=== PATIENT | male | born 1940 | race Caucasian/White ===

== ENCOUNTER 2017-08-15 17:18 | Emergency (ER) | payer OTHER ==
[~2017-08-15] VITALS: Ht 177.8 cm; Wt 83.9 kg
[~2017-08-15 17:18] MED LIST: ASPI81EC PO; CARV25 PO; DIGO.25 PO; FURO40 PO; LEVSOD100 PO; LISI20 PO; OMEP20ER PO; POTCHL10ER PO; SIMV40 PO
[2017-08-15] MEDS ORDERED: Norco 5-325 Ta1 EACH PO (18:13)
[2017-08-15] MEDS ORDERED: IBUP800 PO (18:13)
[2017-08-15] MEDS ORDERED: CEPH500 PO (18:13)
[2017-08-15] MEDS ORDERED: ATOR40TA PO (18:41)
== END 2017-08-15 20:06 | disposition home or self-care (01) ==
LOC: ER 17:18
DX: S62.333A Displaced fracture of neck of third metacarpal bone, left hand, initial encounter for closed fracture (principal); S62.325A Displaced fracture of shaft of fourth metacarpal bone, left hand, initial encounter for closed fracture; S66.303A Unspecified injury of extensor muscle, fascia and tendon of left middle finger at wrist and hand level, initial encounter; S61.412A Laceration without foreign body of left hand, initial encounter; W29.8XXA Contact with other powered hand tools and household machinery, initial encounter; Z79.82 Long term (current) use of aspirin; Z79.899 Other long term (current) drug therapy
CPT/HCPCS: J0690

== ENCOUNTER → 2023-02-12 | Outpatient (CLI) | payer OTHER ==
[~2023-02-12] MED LIST changes: +ATOR40TA PO; +CEPH500 PO; +IBUP800 PO; +Norco 5-325 Ta1 EACH PO
[2023-02-12 19:43] LABS: Albumin, Blood 3.2 g/dL (3.4-5.0); Albumin/Globulin Ratio 1.3 (0.8-1.8); Bilirubin, Total 0.9 mg/dL (0.1-1.0); Calcium, Blood 8.6 mg/dL (8.5-10.1); Creatinine, Blood 1.15 mg/dL (0.60-1.20); Globulin, Blood 2.5 g/dL (2.2-4.0); Potassium, Blood 4.4 mmol/L (3.5-5.5); Total Protein, Blood 5.7 g/dL (6.4-8.2)
== END | disposition home or self-care (01) ==
LOC: LAB 17:50 → LAB SHORT 17:50
PROVIDERS: Family Medicine
DX: I50.9 Heart failure, unspecified (principal)
CPT/HCPCS: 80053; 83880

== ENCOUNTER 2023-05-15 12:35 | Emergency (ER) | payer OTHER ==
[~2023-05-15] VITALS: Ht 177.8 cm; Wt 72.6 kg
[2023-05-15 14:31] LABS: BASOPHILS ABSOLUTE AUTO 0.07 K/mm3 (0.00-0.23); BASOPHILS PERCENT AUTO 1 % (0-2); EOSINOPHILS ABSOLUTE AUTO 0.04 K/mm3 (0.00-0.68); EOSINOPHILS PERCENT AUTO 0 % (0-6); Hematocrit 44.9 % (37.0-53.0); IMMATURE GRAN ABSOLUTE AUTO 0.03 K/mm3 (0.00-0.10); IMMATURE GRAN PERCENT AUTO 0 % (0-1); LYMPHOCYTES ABSOLUTE AUTO 2.36 K/mm3 (0.84-5.20); LYMPHOCYTES PERCENT AUTO 25 % (21-46); MONOCYTES ABSOLUTE AUTO 0.55 K/mm3 (0.16-1.47); MONOCYTES PERCENT AUTO 6 % (4-13); Mean Corpuscular HGB 29.8 pg (26.0-34.0); Mean Corpuscular HGB Conc 33.4 g/dL (31.5-36.5); Mean Corpuscular Volume 89 fL (80-100); NEUTROPHILS ABSOLUTE AUTO 6.38 K/mm3 (1.96-9.15); NEUTROPHILS PERCENT AUTO 68 % (41-73); Platelet Count 155 K/mm3 (150-400); RDW Coefficient Variation 14.1 % (11.7-14.2); RDW Standard Deviation 46.1 fL (35.1-46.3); Red Blood Cell Count 5.03 M/mm3 (4.30-5.90); White Blood Cell Count 9.43 K/mm3 (4.00-11.30)
[2023-05-15 14:47] LABS: Albumin, Blood 3.2 g/dL (3.4-5.0); Albumin/Globulin Ratio 1.2 (0.8-1.8); Bilirubin, Total 0.7 mg/dL (0.1-1.0); Bun/Creatinine Ratio 31.7 (12.0-20.0); Calcium, Blood 8.9 mg/dL (8.5-10.1); Creatinine, Blood 0.92 mg/dL (0.60-1.20); Globulin, Blood 2.6 g/dL (2.2-4.0); Potassium, Blood 4.8 mmol/L (3.5-5.5); Total Protein, Blood 5.8 g/dL (6.4-8.2)
[2023-05-15 15:00] VITALS: BP 115/84
[2023-05-15 15:38] LABS: Thyroid Stimulating Hormone 10.4 uIU/mL (0.360-4.800)
[2023-05-15 16:00] LABS: Source, Urine Clean Catch
[2023-05-15 16:04] LABS: Appearance, Urine Clear (Clear); Bilirubin, Urine Neg (Neg); Blood, Urine Neg (Neg); Color, Urine Yellow (P-Yellow); Glucose Qualitative, Urine Neg (Neg); Ketones, Urine 2+ (Neg); Leukocyte Esterase, Urine Neg (Neg); Nitrite, Urine Neg (Neg); Protein, Urine 2+ (Neg); Urobilinogen, Urine NORM (Normal)
[2023-05-15 16:19] LABS: Free Thyroxine 1.03 ng/dL (0.70-1.60)
[2023-05-15 16:36] LABS: Bacteria Rare /hpf; Hyaline Casts 0-2 /lpf (0-2); Mucus Light (0-Heavy); Red Blood Cells, Urine 0-2 /hpf (0-2); Squamous Epithelial Cells Rare /hpf (Few)
== END 2023-05-15 16:29 | disposition left against medical advice (07) ==
LOC: ER 12:35
PROVIDERS: Emergency Medicine
DX: R55 Syncope and collapse (principal); Z53.29 Procedure and treatment not carried out because of patient's decision for other reasons; I50.9 Heart failure, unspecified; I25.2 Old myocardial infarction; G20.A1 Parkinson's disease without dyskinesia, without mention of fluctuations; E05.90 Thyrotoxicosis, unspecified without thyrotoxic crisis or storm; Z79.890 Hormone replacement therapy; Z79.899 Other long term (current) drug therapy
CPT/HCPCS: 71045; 80053; 81001; 84439; 84443; 84484; 85025; 93005; 93010; 99285-25